=== PATIENT | male | born 1990 | race Caucasian/White ===

== ENCOUNTER 2022-04-17 09:23 | Emergency (ER) | payer SELFPAY ==
[~2022-04-17] VITALS: Ht 167.6 cm; Wt 84.0 kg
[2022-04-17] MEDS ORDERED: CYCL10TA21 MT (11:40)
[2022-04-17] MEDS ORDERED: CYCLOBENZAPRINE 10MG TABLET PO ONE (11:45)
[2022-04-17] MEDS ORDERED: KETOROLAC 30MG/ML VIAL IM ONE (11:45)
[2022-04-17 12:19] VITALS: BP 154/52
== END 2022-04-17 12:31 | disposition home or self-care (01) ==
LOC: ER 09:23
DX: M25.511 Pain in right shoulder (principal); M25.512 Pain in left shoulder; M25.561 Pain in right knee; M25.562 Pain in left knee
CPT/HCPCS: 96372; 99283; J1885